=== PATIENT | female | born 1955 | race African-American/Black ===

== ENCOUNTER 2019-04-10 07:09 | Inpatient (IN) | payer SELFPAY ==
[~2019-04-10] VITALS: Ht 167.6 cm; Wt 86.2 kg
[2019-04-10] MEDS ORDERED: ALBUTEROL (0.083%) 2.5MG/3ML NEB HHN STA ×2 (07:28→10:12)
[2019-04-10] MEDS ORDERED: IPRATROPIUM BROMIDE (0.02%) 0.5MG/2.5ML NEB HHN STA (07:28)
[2019-04-10] MEDS ORDERED: METHYLPREDNISOLONE SOD SUCC 125 MG/2 ML VIAL IV STA (07:28)
[2019-04-10] MEDS ORDERED: MAGNESIUM 2 G PREMIX 50 ML IV STA (09:17)
[2019-04-10 09:23] LABS: BASOPHILS % 0.7 % (0.0-2.0); EOSINOPHILS % 13.5 % (0.0-5.0); HEMATOCRIT. 40.6 % (36.0-48.0); HEMOGLOBIN. 13.2 g/dL (12.0-16.0); LYMPHOCYTES % 25.8 % (20.0-50.0); MEAN PLATELET VOLUME 8.8 fl (7.4-10.4); MONOCYTES % 10.4 % (2.0-8.0); NEUTROPHILS % 49.6 % (40.0-76.0); PLATELET 171 x1000/uL (130-400); RED BLOOD CELL COUNT 4.56 mill/uL (4.2-5.4)
[2019-04-10 09:26] LABS: CHLORIDE 111 mEq/L (98-107)
[2019-04-10 09:27] LABS: INR 0.9; PROTHROMBIN TIME 9.7 sec (9.6-11.0)
[2019-04-10] MEDS ORDERED: NITROGLYCERIN 0.4MG TABLET SL SL PRN (11:30)
[2019-04-10] MEDS ORDERED: ACETAMINOPHEN 325MG TABLET PO PRN (11:30)
[2019-04-10] MEDS ORDERED: ONDANSETRON HCL 4MG/2ML INJ IV PRN (11:30)
[2019-04-10] MEDS ORDERED: CLONIDINE 0.1MG TABLET PO PRN (11:30)
[2019-04-10] MEDS ORDERED: IPRATROPIUM/ALBUTEROL 0.5-3(2.5)MG/3ML NEB NEB PRN (11:30)
[2019-04-10] MEDS ORDERED: MAGNESIUM/ALUMINUM HYDROXIDE/SIMETHICONE 30ML UDC PO PRN (11:30)
[2019-04-10] MEDS ORDERED: LORAZEPAM 0.5MG TABLET PO PRN (11:30)
[2019-04-10] MEDS ORDERED: DOCUSATE SODIUM 100MG CAPSULE PO PRN (11:30)
[2019-04-10 11:40] LABS: ETHANOL BLOOD < 10 mg/dL
[2019-04-10 11:43] LABS: LDL CHOLESTEROL 85 mg/dL (5-100)
[2019-04-10 11:45] LABS: HDL CHOLESTEROL 130 mg/dL (40-59)
[2019-04-10 14:00] VITALS: BP 147/75
[2019-04-10] MEDS: GUAIFENESIN 200MG/10ML SUGAR FREE UDC PO PRN ×2 (15:57→20:59)
[2019-04-10] MEDS: METHYLPREDNISOLONE SOD SUCC 125 MG/2 ML VIAL IV SCH ×2 (15:57→23:01)
[2019-04-10] MEDS: KETOROLAC 15MG/ML VIAL IV PRN ×2 (15:57→23:17)
[2019-04-10] MEDS: DILTIAZEM HCL 60MG TABLET PO SCH ×2 (15:58→20:29)
[2019-04-10 16:00] VITALS: BP 164/87
[2019-04-10] MEDS ORDERED: LEVOFLOXACIN 500MG PREMIX 100 ML IV SCH (16:00)
[2019-04-10] MEDS: IPRATROPIUM/ALBUTEROL 0.5-3(2.5)MG/3ML NEB HHN SCH ×2 (16:30→21:10)
[2019-04-10] MEDS ORDERED: ENALAPRIL 2.5MG/2ML VIAL 2ML IV NR (17:00)
[2019-04-10] MEDS ORDERED: ENOXAPARIN 40MG/0.4ML SYR SUBCUT SCH (17:00)
[2019-04-10 17:41] LABS: CREATINE KINASE 146 IU/L (26-192)
[2019-04-10 17:42] LABS: CREATINE KINASE MB FRACTION 1.3 ng/mL (0.5-3.6)
[2019-04-10] MEDS ORDERED: TRAZ-213 MT (18:33)
[2019-04-10] MEDS ORDERED: ALPR1TAB2 MT (18:33)
[2019-04-10] MEDS ORDERED: BUDE6HFA INH (18:33)
[2019-04-10] MEDS ORDERED: DIPH25CA83 MT (18:33)
[2019-04-10] MEDS ORDERED: ALBU05 NEB (18:33)
[2019-04-10 20:00] VITALS: BP 114/72
[2019-04-10 20:13] LABS: *AMPHETAMINES SCREEN URINE NEGATIVE (NEGATIVE)
[2019-04-10 20:14] LABS: *BARBITURATES SCREEN URINE NEGATIVE (NEGATIVE); *BENZODIAZEPINES SCREEN URINE NEGATIVE (NEGATIVE); *COCAINE SCREEN URINE PRESUMTIVE POSITIVE (NEGATIVE); METHADONE URINE SCREEN NEGATIVE (NEGATIVE); OPIATES URINE SCREEN NEGATIVE (NEGATIVE); PHENCYCLIDINE URINE SCREEN NEGATIVE (NEGATIVE)
[2019-04-10 20:15] LABS: CANNABINOID URINE SCREEN NEGATIVE (NEGATIVE)
[2019-04-10] MEDS: GUAIFENESIN/DM 600MG/30MG ER TAB 12HR PO SCH (20:30)
[2019-04-10] MEDS: FAMOTIDINE 20MG TABLET PO SCH (20:30)
[2019-04-10] MEDS ORDERED: ZOLPIDEM TARTRATE 5MG TABLET PO PRN (21:00)
[2019-04-10 23:49] LABS: CREATINE KINASE 153 IU/L (26-192)
[2019-04-10 23:50] LABS: CREATINE KINASE MB FRACTION 1.4 ng/mL (0.5-3.6)
[2019-04-11] VITALS: BP 115/62
[2019-04-11] MEDS: IPRATROPIUM/ALBUTEROL 0.5-3(2.5)MG/3ML NEB HHN SCH ×3 (00:44→08:40)
[2019-04-11] MEDS: DILTIAZEM HCL 60MG TABLET PO SCH ×2 (03:09→09:04)
[2019-04-11] MEDS: GUAIFENESIN 200MG/10ML SUGAR FREE UDC PO PRN (03:42)
[2019-04-11 04:00] VITALS: BP 112/68
[2019-04-11] MEDS: METHYLPREDNISOLONE SOD SUCC 125 MG/2 ML VIAL IV SCH (06:00)
[2019-04-11 08:00] VITALS: BP 132/80
[2019-04-11] MEDS ORDERED: ASPIRIN 81MG EC TABLET PO SCH (09:00)
[2019-04-11] MEDS: FAMOTIDINE 20MG TABLET PO SCH (09:03)
[2019-04-11] MEDS: GUAIFENESIN/DM 600MG/30MG ER TAB 12HR PO SCH (09:08)
[2019-04-11 09:39] VITALS: BP 132/80
== END 2019-04-11 10:30 | disposition home or self-care (01) | DRG 141 ==
LOC: ER 07:09 → 7WST 10:45 → EDBEDREQTM 10:48 → EDBEDREQ 10:48 → ENRESERV 12:28
PROVIDERS: ADMIT Internal Medicine; ATTEND Internal Medicine
DX: J45.902 Unspecified asthma with status asthmaticus (principal)
CPT/HCPCS: 36415; 71045; 80061; 80305; 80320; 82550; 82553; 83036; 84484; 93005; 93970; 94640; 96365; 96375; 99285; J1650; J1885; J1956; J2930; J3475; J3490; J7611; J7620; G0480

== ENCOUNTER 2019-05-23 16:15 | Inpatient (IN) | payer SELFPAY ==
[~2019-05-23] VITALS: Ht 154.9 cm; Wt 69.9 kg
[~2019-05-23 16:15] MED LIST: ALBU05 NEB; ALPR1TAB2 MT; BUDE6HFA INH; DIPH25CA83 MT; TRAZ-213 MT
[2019-05-23] MEDS ORDERED: LEVOFLOXACIN 500MG PREMIX 100 ML IV ONE (17:15)
[2019-05-23] MEDS ORDERED: METHYLPREDNISOLONE SOD SUCC 125 MG/2 ML VIAL IV STA (17:15)
[2019-05-23] MEDS ORDERED: IPRATROPIUM/ALBUTEROL 0.5-3(2.5)MG/3ML NEB HHN ONE (17:15)
[2019-05-23] MEDS ORDERED: MAGNESIUM 2 G PREMIX 50 ML IV ONE (17:15)
[2019-05-23 17:44] LABS: BG BASE EXCESS -2.3 mmol/L (-2.0-2.0); BG CARBOXYHEMOGLOBIN 0.7 % (0.5-1.5); BG DEOXYHEMOGLOBIN 9.4 % (0.0-5.0); BG HCO3 ACT 21.5 mmol/L (22.0-26.0); BG METHEMOGLOBIN 0.2 % (0.0-1.5); BG OXYGEN SATURATION 90.5 % (92.0-98.5); BG OXYHEMOGLOBIN 89.7 % (94.0-97.0); BG PCO2 34.3 mmHg (35.0-45.0); BG PH 7.415 (7.350-7.450); BG PO2 59.1 mmHg (75.0-100.0); BG SAMPLE SITE RIGHT BRACHIAL; BG TOTAL HEMOGLOBIN 13.6 g/dL (12.0-18.0); BG VENT MODE ROOM AIR
[2019-05-23] MEDS ORDERED: ONDANSETRON HCL 4MG/2ML INJ IV ONE (18:30)
[2019-05-23 18:35] LABS: HEMATOCRIT. 39.8 % (36.0-48.0); MEAN CORPUSCULAR HEMOGLOBIN 28.6 pg (28.0-32.0); MEAN CORPUSCULAR VOLUME 87.9 fL (81.0-99.0); MEAN PLATELET VOLUME 8.7 fl (7.4-10.4); PLATELET 178 x1000/uL (130-400); RED BLOOD CELL COUNT 4.53 mill/uL (4.2-5.4)
[2019-05-23 18:39] LABS: CHLORIDE 109 mEq/L (98-107)
[2019-05-23 18:42] LABS: PARTIAL THROMBOPLASTIN TIME 25.3 sec (23.4-31.0); PROTHROMBIN TIME 10.2 sec (9.6-11.0)
[2019-05-23 18:46] LABS: ETHANOL BLOOD < 10 mg/dL
[2019-05-23 19:02] LABS: PLATELET ESTIMATE NORMAL
[2019-05-23 21:40] VITALS: BP 134/88
[2019-05-23 21:54] VITALS: BP 134/88
[2019-05-23] MEDS ORDERED: CLONIDINE 0.1MG TABLET PO PRN (22:45)
[2019-05-23] MEDS ORDERED: MORPHINE SULFATE 2 MG/ML CPJ (NOT FOR IM USE) IV PRN (22:45)
[2019-05-23] MEDS ORDERED: IPRATROPIUM/ALBUTEROL 0.5-3(2.5)MG/3ML NEB HHN PRN (22:45)
[2019-05-23] MEDS ORDERED: POTASSIUM CHLORIDE 20MEQ TABLET SR PO NR (23:30)
[2019-05-23] MEDS: ENOXAPARIN 40MG/0.4ML SYR SUBCUT SCH (23:34)
[2019-05-23] MEDS: METHYLPREDNISOLONE SOD SUCC 40 MG/ML VIAL IV SCH (23:35)
[2019-05-23] MEDS: MAGNESIUM/ALUMINUM HYDROXIDE/SIMETHICONE 30ML UDC PO PRN (23:36)
[2019-05-24] VITALS: BP 144/78
[2019-05-24] MEDS: ONDANSETRON HCL 4MG/2ML INJ IV PRN ×2 (00:36→09:17)
[2019-05-24] MEDS: MAGNESIUM/ALUMINUM HYDROXIDE/SIMETHICONE 30ML UDC PO PRN ×4 (00:52→22:56)
[2019-05-24] MEDS: IPRATROPIUM/ALBUTEROL 0.5-3(2.5)MG/3ML NEB HHN SCH ×4 (00:56→20:55)
[2019-05-24 04:00] VITALS: BP 116/68
[2019-05-24] MEDS: METHYLPREDNISOLONE SOD SUCC 40 MG/ML VIAL IV SCH ×3 (05:30→22:52)
[2019-05-24] MEDS: ACETAMINOPHEN 325MG TABLET PO PRN ×2 (05:36→20:53)
[2019-05-24 07:16] LABS: BASOPHILS % 0.2 % (0.0-2.0); HEMATOCRIT. 38.6 % (36.0-48.0); HEMOGLOBIN. 12.6 g/dL (12.0-16.0); LYMPHOCYTES % 16.7 % (20.0-50.0); MEAN CORPUSCULAR HEMOGLOBIN 28.9 pg (28.0-32.0); MEAN CORPUSCULAR VOLUME 88.5 fL (81.0-99.0); MONOCYTES % 1.5 % (2.0-8.0); NEUTROPHILS % 81.6 % (40.0-76.0); PLATELET 177 x1000/uL (130-400); RED BLOOD CELL COUNT 4.36 mill/uL (4.2-5.4); RED CELL DISTRIBUTION WIDTH 14.1 % (11.6-14.6)
[2019-05-24 07:17] LABS: CHLORIDE 110 mEq/L (98-107)
[2019-05-24 08:00] VITALS: BP 138/72
[2019-05-24 08:41] LABS: BG BASE EXCESS -4.2 mmol/L (-2.0-2.0); BG CARBOXYHEMOGLOBIN 0.3 % (0.5-1.5); BG DEOXYHEMOGLOBIN 4.5 % (0.0-5.0); BG FRACTION INSPIRED OXYGEN 21; BG HCO3 ACT 19.5 mmol/L (22.0-26.0); BG METHEMOGLOBIN 0.3 % (0.0-1.5); BG OXYGEN SATURATION 95.5 % (92.0-98.5); BG OXYHEMOGLOBIN 94.9 % (94.0-97.0); BG PCO2 31.9 mmHg (35.0-45.0); BG PH 7.404 (7.350-7.450); BG PO2 79.6 mmHg (75.0-100.0); BG SAMPLE SITE RIGHT RADIAL; BG TOTAL HEMOGLOBIN 13.8 g/dL (12.0-18.0); BG VENT MODE ROOM AIR
[2019-05-24] MEDS: AMLODIPINE 5MG TABLET PO SCH ×2 (09:18→20:54)
[2019-05-24] MEDS: PANTOPRAZOLE SODIUM 40 MG/VIAL IV SCH (11:53)
[2019-05-24 12:00] VITALS: BP 140/78
[2019-05-24] MEDS: KETOROLAC 15MG/ML VIAL IV PRN ×3 (12:02→22:56)
[2019-05-24 16:00] VITALS: BP 132/80
[2019-05-24] MEDS: LEVOFLOXACIN 500MG PREMIX 100 ML IV SCH (16:17)
[2019-05-24 20:00] VITALS: BP 122/69
[2019-05-24] MEDS: ENOXAPARIN 40MG/0.4ML SYR SUBCUT SCH (20:53)
[2019-05-25] VITALS: BP 117/69
[2019-05-25] MEDS: IPRATROPIUM/ALBUTEROL 0.5-3(2.5)MG/3ML NEB HHN SCH ×4 (00:59→21:23)
[2019-05-25 04:00] VITALS: BP 124/71
[2019-05-25] MEDS: METHYLPREDNISOLONE SOD SUCC 40 MG/ML VIAL IV SCH ×3 (06:18→20:14)
[2019-05-25] MEDS: KETOROLAC 15MG/ML VIAL IV PRN ×3 (06:30→20:14)
[2019-05-25] MEDS: MAGNESIUM/ALUMINUM HYDROXIDE/SIMETHICONE 30ML UDC PO PRN ×2 (06:30→12:15)
[2019-05-25] MEDS: PANTOPRAZOLE SODIUM 40 MG/VIAL IV SCH (09:16)
[2019-05-25] MEDS: AMLODIPINE 5MG TABLET PO SCH ×2 (09:16→20:25)
[2019-05-25] MEDS ORDERED: GUAIFENESIN-DM 200MG-20MG/10ML UDC PO PRN (09:30)
[2019-05-25 11:27] VITALS: BP 129/63
[2019-05-25] MEDS: GUAIFENESIN 600MG ER TABLET PO SCH ×2 (12:15→20:13)
[2019-05-25] MEDS: LEVOFLOXACIN 500MG PREMIX 100 ML IV SCH (13:58)
[2019-05-25 16:21] VITALS: BP 113/64
[2019-05-25 20:00] VITALS: BP 122/75
[2019-05-25] MEDS: ENOXAPARIN 40MG/0.4ML SYR SUBCUT SCH (20:13)
[2019-05-25] MEDS: ONDANSETRON HCL 4MG/2ML INJ IV PRN (20:13)
[2019-05-25] MEDS ORDERED: TRAZODONE HCL 50MG TABLET PO SCH (21:00)
[2019-05-26] VITALS: BP 122/72
[2019-05-26] MEDS: IPRATROPIUM/ALBUTEROL 0.5-3(2.5)MG/3ML NEB HHN SCH ×2 (01:31→08:43)
[2019-05-26 04:00] VITALS: BP 113/64
[2019-05-26] MEDS: METHYLPREDNISOLONE SOD SUCC 40 MG/ML VIAL IV SCH (05:25)
[2019-05-26] MEDS: KETOROLAC 15MG/ML VIAL IV PRN (05:25)
[2019-05-26 08:00] VITALS: BP 124/70
[2019-05-26] MEDS ORDERED: FAMOTIDINE 20MG/2ML VIAL IV SCH (09:00)
[2019-05-26] MEDS: AMLODIPINE 5MG TABLET PO SCH (09:44)
[2019-05-26] MEDS: GUAIFENESIN 600MG ER TABLET PO SCH (09:44)
[2019-05-26 10:28] VITALS: BP 124/70
== END 2019-05-26 11:02 | disposition home or self-care (01) | DRG 140 ==
LOC: ER 16:15 → 5WST 20:23 → EDBEDREQTM 20:26 → EDBEDREQ 20:26 → ENRESERV 20:55
PROVIDERS: ADMIT Hospitalist; ATTEND Hospitalist
DX: J44.0 Chronic obstructive pulmonary disease with (acute) lower respiratory infection (principal); J18.9 Pneumonia, unspecified organism; J45.901 Unspecified asthma with (acute) exacerbation; I10 Essential (primary) hypertension; K21.9 Gastro-esophageal reflux disease without esophagitis; Z88.6 Allergy status to analgesic agent; Z88.0 Allergy status to penicillin; Z79.01 Long term (current) use of anticoagulants; Z79.899 Other long term (current) drug therapy
CPT/HCPCS: 36415; 36600; 71045; 80048; 80320; 82375; 82805; 83605; 83880; 84484; 93005; 93970; 99285; C9113; J1650; J1885; J1956; J2405; J2920; J2930; J3475; J3490; J7620; G0480

== ENCOUNTER 2021-04-19 02:05 | Emergency (ER) | payer MEDICARE ==
[~2021-04-19] VITALS: Ht 154.9 cm; Wt 78.0 kg
[~2021-04-19 02:05] MED LIST changes: -TRAZ-213 MT; +TRAZ-252 MT
[2021-04-19] MEDS ORDERED: ALBUTEROL (0.083%) 2.5MG/3ML NEB HHN STA (03:06)
[2021-04-19] MEDS ORDERED: PREDNISONE 20MG TABLET PO STA (03:06)
[2021-04-19] MEDS ORDERED: IPRATROPIUM BROMIDE (0.02%) 0.5MG/2.5ML NEB HHN STA (03:06)
[2021-04-19] MEDS ORDERED: P50 MT (05:08)
[2021-04-19] MEDS ORDERED: ALBU05 NEB (05:08)
[2021-04-19 05:47] VITALS: BP 128/78
== END 2021-04-19 05:49 | disposition home or self-care (01) ==
LOC: ER 02:05
DX: J45.901 Unspecified asthma with (acute) exacerbation (principal); Z79.51 Long term (current) use of inhaled steroids; Z88.0 Allergy status to penicillin; Z88.5 Allergy status to narcotic agent; Z79.899 Other long term (current) drug therapy; Z98.51 Tubal ligation status; Z98.84 Bariatric surgery status; Z91.013 Allergy to seafood; Z91.018 Allergy to other foods
CPT/HCPCS: 71045; 94644; 99285; J7512

== ENCOUNTER 2021-05-14 17:30 | Inpatient (IN) | payer MEDICARE ==
[~2021-05-14] VITALS: Ht 162.6 cm; Wt 84.8 kg
[~2021-05-14 17:30] MED LIST changes: +P50 MT
[2021-05-14] MEDS ORDERED: METHYLPREDNISOLONE SOD SUCC 125 MG/2 ML VIAL IV STA (18:03)
[2021-05-14] MEDS ORDERED: IPRATROPIUM/ALBUTEROL 0.5-3(2.5)MG/3ML NEB HHN ONE (18:15)
[2021-05-14] MEDS ORDERED: MAGNESIUM 2 G PREMIX 50 ML IV ONE (18:15)
[2021-05-14 18:38] LABS: EOSINOPHILS % 14.4 % (0.0-5.0); HEMATOCRIT. 40.1 % (36.0-48.0); HEMOGLOBIN. 12.8 g/dL (12.0-16.0); LYMPHOCYTES % 38.4 % (20.0-50.0); MEAN CORPUSCULAR HEMOGLOBIN 27.9 pg (28.0-32.0); MEAN CORPUSCULAR VOLUME 87.4 fL (81.0-99.0); MONOCYTES % 6.5 % (2.0-8.0); NEUTROPHILS % 39.7 % (40.0-76.0); PLATELET 218 x1000/uL (130-400); RED BLOOD CELL COUNT 4.59 mill/uL (4.2-5.4); RED CELL DISTRIBUTION WIDTH 14.1 % (11.6-14.6)
[2021-05-14 18:43] LABS: CHLORIDE 111 mEq/L (98-107)
[2021-05-14] MEDS ORDERED: IPRATROPIUM/ALBUTEROL 0.5-3(2.5)MG/3ML NEB HHN NR (22:30)
[2021-05-14] MEDS ORDERED: IOHEXOL-350 100 ML BOTTLE ONE (23:27)
[2021-05-15] VITALS (9 sets, daily range): BP systolic 125–157; BP diastolic 73–111
[2021-05-15] MEDS ORDERED: PANTOPRAZOLE SODIUM 40 MG/VIAL IV SCH (01:30)
[2021-05-15] MEDS ORDERED: MAGNESIUM/ALUMINUM HYDROXIDE/SIMETHICONE 30ML UDC PO PRN (06:15)
[2021-05-15] MEDS ORDERED: IPRATROPIUM/ALBUTEROL 0.5-3(2.5)MG/3ML NEB HHN PRN (06:15)
[2021-05-15] MEDS ORDERED: ONDANSETRON HCL 4MG/2ML INJ IV PRN (06:15)
[2021-05-15] MEDS ORDERED: CLONIDINE 0.1MG TABLET PO PRN (06:15)
[2021-05-15] MEDS ORDERED: ENOXAPARIN 40MG/0.4ML SYR SUBCUT SCH (06:15)
[2021-05-15] MEDS ORDERED: HYDROCODONE/ACETAMINOPHEN 5/325MG TABLET PO PRN (06:15)
[2021-05-15] MEDS ORDERED: DOCUSATE SODIUM 100MG CAPSULE PO PRN (06:15)
[2021-05-15] MEDS ORDERED: NALOXONE HCL 0.4MG/ML VIAL IV PRN (07:00)
[2021-05-15] MEDS: METHYLPREDNISOLONE SOD SUCC 125 MG/2 ML VIAL IV SCH ×3 (07:12→17:11)
[2021-05-15] MEDS ORDERED: LEVOFLOXACIN 500MG PREMIX 100 ML IV SCH (08:00)
[2021-05-15] MEDS: ENOXAPARIN 30MG/0.3ML SYR SUBCUT SCH ×2 (09:41→21:39)
[2021-05-15] MEDS: AMLODIPINE 10MG TABLET PO SCH (09:41)
[2021-05-15] MEDS: IPRATROPIUM/ALBUTEROL 0.5-3(2.5)MG/3ML NEB HHN SCH ×4 (10:13→23:08)
[2021-05-15] MEDS ORDERED: MORPHINE SULFATE 2 MG/ML CPJ (NOT FOR IM USE) IV SCH (10:30)
[2021-05-15] MEDS ORDERED: MONT4TAB9 MT (13:32)
[2021-05-15] MEDS: ALPRAZOLAM 0.5 MG TABLET PO SCH (16:23)
[2021-05-15] MEDS: TRAZODONE HCL 50MG TABLET PO SCH (21:39)
[2021-05-15] MEDS: ACETAMINOPHEN 325MG TABLET PO PRN (21:39)
[2021-05-16] VITALS: BP 143/82
[2021-05-16] MEDS: METHYLPREDNISOLONE SOD SUCC 125 MG/2 ML VIAL IV SCH ×4 (00:04→17:33)
[2021-05-16] MEDS: GUAIFENESIN 200MG/10ML SUGAR FREE UDC PO PRN ×2 (00:23→04:21)
[2021-05-16 04:00] VITALS: BP 127/67
[2021-05-16 06:26] LABS: BASOPHILS % 0.1 % (0.0-2.0); HEMATOCRIT. 37.5 % (36.0-48.0); HEMOGLOBIN. 11.9 g/dL (12.0-16.0); LYMPHOCYTES % 9.5 % (20.0-50.0); MEAN CORPUSCULAR HEMOGLOBIN 27.8 pg (28.0-32.0); MEAN CORPUSCULAR VOLUME 87.4 fL (81.0-99.0); MONOCYTES % 1.6 % (2.0-8.0); NEUTROPHILS % 88.8 % (40.0-76.0); PLATELET 211 x1000/uL (130-400); RED BLOOD CELL COUNT 4.29 mill/uL (4.2-5.4); RED CELL DISTRIBUTION WIDTH 14.2 % (11.6-14.6)
[2021-05-16 06:29] LABS: CHLORIDE 110 mEq/L (98-107)
[2021-05-16] MEDS: LEVOFLOXACIN 500MG PREMIX 100 ML IV SCH (07:00)
[2021-05-16 08:00] VITALS: BP 139/51
[2021-05-16] MEDS: ALPRAZOLAM 0.5 MG TABLET PO SCH (08:14)
[2021-05-16] MEDS: AMLODIPINE 10MG TABLET PO SCH (08:14)
[2021-05-16] MEDS: ENOXAPARIN 30MG/0.3ML SYR SUBCUT SCH (08:15)
[2021-05-16] MEDS: IPRATROPIUM/ALBUTEROL 0.5-3(2.5)MG/3ML NEB HHN SCH ×3 (10:09→21:07)
[2021-05-16] MEDS: GUAIFENESIN 600MG ER TABLET PO SCH ×2 (10:58→21:14)
[2021-05-16] MEDS: OMEPRAZOLE 20MG CAPSULE EXTENDED RELEASE PO SCH ×2 (10:58→21:14)
[2021-05-16 12:00] VITALS: BP 147/84
[2021-05-16 16:00] VITALS: BP 131/77
[2021-05-16] MEDS: ACETAMINOPHEN 325MG TABLET PO PRN (17:33)
[2021-05-16 20:00] VITALS: BP 130/73
[2021-05-16] MEDS: TRAZODONE HCL 50MG TABLET PO SCH (21:14)
[2021-05-17] VITALS: BP 129/75
[2021-05-17] MEDS: METHYLPREDNISOLONE SOD SUCC 125 MG/2 ML VIAL IV SCH ×2 (00:21→05:56)
[2021-05-17] MEDS: IPRATROPIUM/ALBUTEROL 0.5-3(2.5)MG/3ML NEB HHN SCH ×2 (00:46→09:51)
[2021-05-17 04:00] VITALS: BP 127/64
[2021-05-17] MEDS: OMEPRAZOLE 20MG CAPSULE EXTENDED RELEASE PO SCH (05:56)
[2021-05-17 08:00] VITALS: BP 145/67
[2021-05-17] MEDS ORDERED: ENOXAPARIN 40MG/0.4ML SYR SUBCUT SCH (09:00)
[2021-05-17] MEDS: LEVOFLOXACIN 500MG PREMIX 100 ML IV SCH (09:15)
[2021-05-17] MEDS: ALPRAZOLAM 0.5 MG TABLET PO SCH (09:16)
[2021-05-17] MEDS ORDERED: AMLODIPINE 5MG TABLET PO SCH (10:30)
[2021-05-17 11:22] VITALS: BP 145/67
[2021-05-17] MEDS: GUAIFENESIN 600MG ER TABLET PO SCH (11:40)
== END 2021-05-17 14:02 | disposition home or self-care (01) | DRG 192 ==
LOC: ER 17:30 → 8WST 23:11 → EDBEDREQTM 23:18 → EDBEDREQ 23:18 → ENRESERV 05-15 00:14
PROVIDERS: ADMIT Hospitalist; ATTEND Hospitalist
DX: J44.1 Chronic obstructive pulmonary disease with (acute) exacerbation (principal); I10 Essential (primary) hypertension; Z77.22 Contact with and (suspected) exposure to environmental tobacco smoke (acute) (chronic); Z20.822 Contact with and (suspected) exposure to COVID-19; Z88.6 Allergy status to analgesic agent; Z88.0 Allergy status to penicillin; Z91.013 Allergy to seafood; Z91.018 Allergy to other foods; Z79.01 Long term (current) use of anticoagulants; Z79.899 Other long term (current) drug therapy; Z98.84 Bariatric surgery status; Z98.51 Tubal ligation status
CPT/HCPCS: 36415; 71045; 71275; 80053; 83880; 84484; 85025; 85379; 87426; 93005; 93970; 94640; 99291; C9113; J1650; J1956; J2270; J2930; J3475; Q9967

== ENCOUNTER 2024-12-19 05:59 | Emergency (ER) | payer OTHER ==
[~2024-12-19] VITALS: Ht 157.5 cm; Wt 55.0 kg
[~2024-12-19 05:59] MED LIST changes: +ALBU18HF2 IH; +MONT4TAB71 MT
[2024-12-19 06:08] VITALS: O2SAT 99
[2024-12-19] MEDS: ACETAMINOPHEN 325MG TABLET PO ONE (07:34)
[2024-12-19] MEDS ORDERED: IBUP-2029 MT (08:13)
[2024-12-19 09:43] VITALS: BP 134/48; PULSE 83; RESP 16; TEMP 36.6; O2SAT 100
== END 2024-12-19 10:05 | disposition home or self-care (01) ==
LOC: ER 06:37
DX: S09.90XA Unspecified injury of head, initial encounter (principal); M25.571 Pain in right ankle and joints of right foot; M79.671 Pain in right foot; J45.909 Unspecified asthma, uncomplicated; I10 Essential (primary) hypertension; Z88.5 Allergy status to narcotic agent; Z88.0 Allergy status to penicillin; Z79.899 Other long term (current) drug therapy; Z79.51 Long term (current) use of inhaled steroids; W01.0XXA Fall on same level from slipping, tripping and stumbling without subsequent striking against object, initial encounter; Y93.89 Activity, other specified; Y92.89 Other specified places as the place of occurrence of the external cause; Y99.8 Other external cause status
CPT/HCPCS: 99284; 29515; 70450; 73502; 73562; 73610; 73630; A6449

== ENCOUNTER 2025-04-23 00:31 | Emergency (ER) | payer OTHER ==
[~2025-04-23] VITALS: Ht 162.6 cm; Wt 70.0 kg
[~2025-04-23 00:31] MED LIST changes: +IBUP-1455 MT
[2025-04-23 01:27] VITALS: TEMP 37.2
[2025-04-23] MEDS: MAGNESIUM 2 G PREMIX 50 ML IV ONE (01:45)
[2025-04-23] MEDS ORDERED: ONDANSETRON HCL 4MG/2ML INJ IV ONE (01:45)
[2025-04-23] MEDS ORDERED: METHYLPREDNISOLONE SOD SUCC 125MG/2ML (ACT-O-VIAL) IV ONE (01:45)
[2025-04-23] MEDS ORDERED: MORPHINE SULFATE 4 MG/ML INJ (FOR IV/IM USE) IV ONE (01:45)
[2025-04-23 02:07] LABS: BASOPHILS % 0.8 % (0.0-2.0); EOSINOPHILS % 14.4 % (0.0-5.0); HEMATOCRIT. 34.5 % (36.0-48.0); HEMOGLOBIN. 10.7 g/dL (12.0-16.0); LYMPHOCYTES % 29.1 % (20.0-50.0); MEAN PLATELET VOLUME 8.3 fl (7.4-10.4); MONOCYTES % 7.4 % (2.0-8.0); NEUTROPHILS % 48.3 % (40.0-76.0); PLATELET 233 x1000/uL (130-400); RED BLOOD CELL COUNT 4.04 mill/uL (4.2-5.4); RED CELL DISTRIBUTION WIDTH 16.2 % (11.6-14.6)
[2025-04-23 02:19] LABS: CREATININE 0.6 mg/dL (0.6-1.0); UREA NITROGEN BLOOD 8 mg/dL (9-23)
[2025-04-23 02:20] LABS: TROPONIN I HIGH SENSITIVITY 4 ng/L (3.0-34)
[2025-04-23] MEDS: IPRATROPIUM BROMIDE (0.02%) 0.5MG/2.5ML NEB HHN SCH (02:36)
[2025-04-23 02:37] VITALS: PULSE 77; RESP 18; O2SAT 98
[2025-04-23] MEDS: ALBUTEROL (0.083%) 2.5MG/3ML NEB HHN SCH (02:37)
[2025-04-23 02:51] VITALS: PULSE 87; RESP 19; O2SAT 99
[2025-04-23 03:12] VITALS: PULSE 85; RESP 18; O2SAT 98
[2025-04-23] MEDS: SODIUM CHLORIDE 0.9% (SEPSIS BOLUS) IV ONE (03:36)
[2025-04-23] MEDS: LEVOFLOXACIN 500MG PREMIX 100 ML IV ONE (03:45)
[2025-04-23] MEDS: METHYLPREDNISOLONE SOD SUCC 125MG/2ML (ACT-O-VIAL) IV NR (04:53)
[2025-04-23] MEDS: ONDANSETRON HCL 4MG/2ML INJ IV NR (04:53)
[2025-04-23] MEDS: MORPHINE SULFATE 2 MG/ML INJ (NOT FOR IM USE) IV NR (04:53)
[2025-04-23 05:42] VITALS: BP 169/88; PULSE 91; RESP 14; O2SAT 100
[2025-04-23 07:29] LABS: INFLUENZA TYPE A Presumptive Negative (Pres. Neg.); INFLUENZA TYPE B Presumptive Negative (Pres. Neg.); RESPIRATORY SYNCYTIAL VIRUS Not Detected (Not Detectd)
== END 2025-04-23 05:46 | disposition admitted as inpatient to this hospital (09) ==
LOC: ER 01:39 → EDBEDREQ 03:37 → EDBEDREQTM 03:37 → ER 05:46 → CMPBEDREQ 04-24 07:55
DX: J45.901 Unspecified asthma with (acute) exacerbation (principal); J96.01 Acute respiratory failure with hypoxia; Z79.51 Long term (current) use of inhaled steroids; I10 Essential (primary) hypertension; Z79.899 Other long term (current) drug therapy; Z88.0 Allergy status to penicillin; Z88.5 Allergy status to narcotic agent; Z91.013 Allergy to seafood; Z20.822 Contact with and (suspected) exposure to COVID-19
CPT/HCPCS: 99291; 96365; 96375; 71045; 96361; 87426; 80048; 83880; 83605; 83735; 85025; 85379; 87420; 87040; 84484; 87804 ×2; 36415; 94640; J2919; J1956; J3475; J2405; J2270; J7030; 94070